=== PATIENT | male | born 1995 | race Caucasian/White ===

== ENCOUNTER 2022-08-24 19:57 | Emergency (ER) | payer OTHER, SELFPAY ==
--- NOTE | ~2022-08-24 | CT_ITS ---
EXAMINATION: CT RIGHT ELBOW. CLINICAL INFORMATION: Hemarthrosis. Fall on outstretched hand. Elbow pain. Unable to move elbow. COMPARISON: Plain film exam right elbow today. TECHNIQUE: Axial images obtained through the right elbow. Coronal and sagittal reformatted images are performed at CT scanner. FINDINGS: There is fluid in the elbow joint consistent with hemarthrosis displacing the fat pads of the distal humerus. There is no fracture. No dislocation. Joint space is normal. CT/CT elbow RT wo IV con IMPRESSION: 1. No fracture. 2. Joint hemarthrosis. Consider follow-up MRI exam if pain persists.
--- NOTE | ~2022-08-24 | XR_ITS ---
EXAMINATION: XR ELBOW, RIGHT CLINICAL INFORMATION: Pain status post elbow injury COMPARISON: None TECHNIQUE: Two views of the right elbow. FINDINGS: A large hemarthrosis is present. A definite fracture, however, is not seen as 2 views. XR/XR elbow RT 2V IMPRESSION: Large hemarthrosis is present. A definite fracture is not seen. An occult fracture cannot be excluded on these 2 views.
--- NOTE | 2022-08-24 20:02 | ED_ITS ---
HPI - Extremity Injury (Upper) General Chief Complaint: Extremity Injury, Upper <LIOR Walsh - Last Filed: 08/24/22 20:03> Stated Complaint: ?Shoulder injury <LIOR Walsh - Last Filed: 08/24/22 20:03> Time Seen by Provider: 08/24/22 20:55 <LIOR Walsh - Last Filed: 08/24/22 20:03> Source: patient <Kristy Bill NP - Last Filed: 08/24/22 22:56> Mode of arrival: ambulatory <Kristy Bill NP - Last Filed: 08/24/22 22:56> Limitations: no limitations <Kristy Bill NP - Last Filed: 08/24/22 22:56> History of Present Illness HPI narrative: 27-year-old male presents with right elbow pain after snowboarding injury. He is unable to bend his arm, and has swelling in his fingers. <Kristy Bill NP - Last Filed: 08/24/22 22:56> MD complaint: injury to: right and elbow <Kristy Bill NP - Last Filed: 08/24/22 22:56> Onset (ago): hour(s) (Within an hour of arrival) <Kristy Bill NP - Last Filed: 08/24/22 22:56> Other injuries: none <Kristy Bill NP - Last Filed: 08/24/22 22:56> Handedness: right <Kristy Bill NP - Last Filed: 08/24/22 22:56> Place: other (Snowboarding) <Kristy Bill NP - Last Filed: 08/24/22 22:56> Severity: moderate <Kristy Bill NP - Last Filed: 08/24/22 22:56> Severity scale (1-10): 8 <Kristy Bill NP - Last Filed: 08/24/22 22:56> Relieving factors: immobilization <Kristy Bill NP - Last Filed: 08/24/22 22:56> Exacerbating factors: movement of extremity and other (Palpation) <Kristy Bill NP - Last Filed: 08/24/22 22:56> Context: fall and sports-related injury <Kristy Bill NP - Last Filed: 08/24/22 22:56> Associated symptoms: denies other symptoms <Kristy Bill NP - Last Filed: 08/24/22 22:56> Treatments prior to arrival: cold therapy <Kristy Bill NP - Last Filed: 08/24/22 22:56> Related Data Home Medications: Previous Rx's Medication Instructions Recorded oxycodone 5 mg tablet 5 mg PO Q4H PRN pain 3 days #18 08/24/22 tabs <LIOR Walsh - Last Filed: 08/24/22 20:03> Allergies/Adverse Reactions: Allergies Allergy/AdvReac Type Severity Reaction Status Date / Time No Known Allergies Allergy Unverified 05/01/20 16:49 [No Known Allergies*] <LIOR Walsh - Last Filed: 08/24/22 20:03> Review of Systems Review of Systems: Constitutional: No Fever, No Chills Cardiovascular: No Chest Pain, No SOB Respiratory: No Cough, No Dyspnea Gastrointestinal: No Nausea, No Vomiting, No Diarrhea, No abdominal Pain Genitourinary: No Dysuria, No Hematuria Musculoskeletal: positive right elbow pain, No Myalgias, positive right elbow Joint Swelling Skin: No Skin lacerations, No rash Neuro: No Weakness, No Numbness, No Paresthesias, No Dizziness, No Headache <Kristy iBll NP - Last Filed: 08/24/22 22:56> Yes all other systems are reviewed and are negative <Kristy Bill NP - Last Filed: 08/24/22 22:56> [facility] Past Medical History Attestation statement: The following information was validated with the patient. <Kristy Bill NP - Last Filed: 08/24/22 22:56> Source: old records reviewed <Kristy Bill NP - Last Filed: 08/24/22 22:56> Social History Social History: Social History Advance Directives: No Advance Directives Information Provided: No <LIOR Walsh Last Filed: 08/24/22 20:03> Physical Exam Vital Signs: Vital Signs: Last Vital Signs Temp 99.0 F 08/24/22 20:03 Pulse 86 08/24/22 20:03 Resp 18 08/24/22 20:03 BP 155/72 H 08/24/22 20:03 Pulse Ox 96 08/24/22 20:03 O2 Del Method 08/24/22 20:03 BMI result Body Mass Index 25.7 <LIOR Walsh - Last Filed: 08/24/22 20:03> Vital Signs: Last Vital Signs Temp 99.0 F 08/24/22 20:03 Pulse 86 08/24/22 20:03 Resp 18 08/24/22 20:03 BP 155/72 H 08/24/22 20:03 Pulse Ox 96 08/24/22 20:03 O2 Del Method 08/24/22 20:03 BMI result Body Mass Index 25.7 <Kristy Bill NP - Last Filed: 08/24/22 22:56> Appearance: Alert. Oriented X3. Moderate distress. Eyes: Pupils equal, round and reactive to light. ENT: Pharynx normal. Neck: Normal inspection. Neck supple. No vertebral tenderness or step-offs. CVS: Normal heart rate and rhythm. Pulses normal. Respiratory: No respiratory distress. Breath sounds normal. Abdomen: Soft and nontender. Skin: Skin warm and dry. Normal skin color. Normal skin turgor. Extremities: No shoulder tenderness, crepitus, no pain in the biceps, forearm. Decreased range of motion to the digits due to swelling, able to fully abduct and adduct thumb. Decreased pronation supination secondary to elbow pain and swelling. Right elbow is visibly a swollen, range of motion to elbow not performed secondary to traumatic injury. Neuro: No motor deficit. No sensory deficit. Cranial nerves 2-12 intact. <Kristy Bill NP - Last Filed: 08/24/22 22:56> Course Course Course Narrative: RME - 27 y/o male presents the ER for evaluation of right elbow pain and limited range of motion after he had a fall while snowboarding earlier. He states he fell with his right arm extended. He did not hear any pops or snaps but has been unable to extend or flex his right elbow since. Neurovascularly intact distally. X-ray right elbow ordered. <LIOR Walsh - Last Filed: 08/24/22 20:03> RME - 27 y/o male presents the ER for evaluation of right elbow pain and limited range of motion after he had a fall while snowboarding earlier. He states he fell with his right arm extended. He did not hear any pops or snaps but has been unable to extend or flex his right elbow since. Neurovascularly intact distally. X-ray right elbow ordered. 27-year-old male presents with right elbow pain, swelling and limited range of motion with swelling to his hand. He has full sensation, brisk capillary refill in equal pulses bilaterally. Patient is neurovascularly intact. X-ray indicates a large hemarthrosis. Will medicate for pain with IV morphine, p.o. oxycodone. 21:21 call out to orthopedics PA, plan of care is for patient to follow-up in the office at 10:[address] patient in a sling, provide pain management. CT scan recommended, ordered at this time. 22:40 no occult fracture noted. Joint hemarthrosis noted. Plan of care is to discharge home with sling, pain management. Patient verbalized understanding of compartment syndrome. Patient does understand that he must follow-up with orthopedics. Patient verbalized understanding of and agrees with care discharge home. Verbalized understanding of signs and symptoms indicating need for emergent intervention. <Kristy Bill NP - Last Filed: 08/24/22 22:56> Consultations Consultation #1: Isidro <Kristy Bill NP - Last Filed: 08/24/22 22:56> Medications Administered Discontinued Medications Generic Name Dose Route Start Last Admin Trade Name Jillian PRN Reason Stop Dose Admin Morphine Sulfate 4 mg 08/24/22 21:28 08/24/22 21:43 Morphine Sulfate 4 Mg/Ml Cartridge IVPUSH 08/24/22 21:29 4 mg ONCE ONE Administration Protocol Ondansetron HCl 4 mg 08/24/22 21:28 08/24/22 21:42 Ondansetron Hcl 4 Mg/2 Ml Vial IVPUSH 08/24/22 21:29 4 mg ONCE ONE Administration Oxycodone HCl 5 mg 08/24/22 21:28 08/24/22 21:43 Oxycodone Hcl Immed Release 5 Mg Tablet PO 08/24/22 21:29 5 mg ONCE ONE Administration <LIOR Walsh - Last Filed: 08/24/22 20:03> Medications Administered Discontinued Medications Generic Name Dose Route Start Last Admin Trade Name Jillian PRN Reason Stop Dose Admin Morphine Sulfate 4 mg 08/24/22 21:28 08/24/22 21:43 Morphine Sulfate 4 Mg/Ml Cartridge IVPUSH 08/24/22 21:29 4 mg ONCE ONE Administration Protocol Ondansetron HCl 4 mg 08/24/22 21:28 08/24/22 21:42 Ondansetron Hcl 4 Mg/2 Ml Vial IVPUSH 08/24/22 21:29 4 mg ONCE ONE Administration Oxycodone HCl 5 mg 08/24/22 21:28 08/24/22 21:43 Oxycodone Hcl Immed Release 5 Mg Tablet PO 08/24/22 21:29 5 mg ONCE ONE Administration <Kristy Bill NP - Last Filed: 08/24/22 22:56> Medical Decision Making Differential Diagnosis Differential Diagnoses: The differential diagnosis associated with the presentation includes <Kristy Bill NP - Last Filed: 08/24/22 22:56> Fracture, dislocation, effusion, hemarthrosis, tendon rupture <Kristy Bill NP - Last Filed: 08/24/22 22:56> Consult Healthcare Provider Management of the patient was discussed with: Hospital Pharmacy Director <Kristy Bill NP - Last Filed: 08/24/22 22:56> Orthopedics <Kristy Bill NP - Last Filed: 08/24/22 22:56> Independent Interpretation I performed an independent interpretation of an: Plain X-Ray and CT Scan <Kristy Bill NP - Last Filed: 08/24/22 22:56> Radiology Impression Discussion of test interpretation with radiology: I have reviewed the radiologist's reading. <Kristy Bill NP - Last Filed: 08/24/22 22:56> Radiologist Impression: EXAMINATION: XR ELBOW, RIGHT CLINICAL INFORMATION: Pain status post elbow injury? COMPARISON: None? TECHNIQUE: Two views of the right elbow. FINDINGS: A large hemarthrosis is present. A definite fracture, however, is not seen as 2 views.? XR/XR elbow RT 2V IMPRESSION: Large hemarthrosis is present. A definite fracture is not seen. An occult fracture cannot be excluded on these 2 views. EXAMINATION: CT RIGHT ELBOW. CLINICAL INFORMATION: Hemarthrosis. Fall on outstretched hand. Elbow pain. Unable to move elbow.? COMPARISON: Plain film exam right elbow today.? TECHNIQUE: Axial images obtained through the right elbow. Coronal and sagittal reformatted images are performed at CT scanner.? FINDINGS: There is fluid in the elbow joint consistent with hemarthrosis displacing the fat pads of the distal humerus. There is no fracture. No dislocation. Joint space is normal.? CT/CT elbow RT wo IV con IMPRESSION: 1.? No fracture. 2.? Joint hemarthrosis. ? Consider follow-up MRI exam if pain persists. ? <Kristy Bill NP - Last Filed: 08/24/22 22:56> External Record Review External record reviewed: Outpatient record <Kristy Bill NP - Last Filed: 08/24/22 22:56> Prescription Management I considered prescription management with: Pain Medication <Kristy Bill NP - Last Filed: 08/24/22 22:56> Discharge Plan Discharge Clinical Impression: Hemarthrosis involving elbow joint, Dislocation of radial head <LIOR Walsh - Last Filed: 08/24/22 20:03> Patient Disposition: Home, Self-Care <LIOR Walsh - Last Filed: 08/24/22 20:03> Instructions: Elbow Dislocation (ED), Hemarthrosis (ED), R.I.C.E. Treatment (ED), Compartment Syndrome (DC) <LIOR Walsh - Last Filed: 08/24/22 20:03> Additional Instructions: You were evaluated for right elbow pain after a sports-related injury. You have a large hemarthrosis, a pocket of blood inside the elbow joint. This is suspected to have occurred because of an elbow dislocation during the fall. Please keep splint in place. Continue to move your fingers to help improve circulations. Rest, ice and elevate the extremity. You must follow-up with orthopedics. Please follow-up with Junie TINAJERO at 10:45 on . They are located on [address] I provided instructions for compartment syndrome. Please read these instructions. If you have any signs or symptoms indicating compartment syndrome you must return to the emergency department immediately. You do not have compartment syndrome at this time, however you have a high risk for this syndrome based on the extent of your injuries. Please take oxycodone for pain management. This medication is a narcotic and has high risk for addiction and abuse. Do not drive or operate machinery while taking this medication. This medication can delay reaction time, increased risk for falls, cause drowsiness, and constipation. Drink plenty of fluids. Consider using MiraLax daily to help soften stools. This is a dangerous medication. Use this medication with extreme caution. Alternate Tylenol 650 mg every 6 hours and Motrin 600 mg every 6 hours as needed for pain and fever management. Consider taking these medications 3 hours apart so you have pain and fever management every 3 hours. Write down what time you take these medications to prevent accidental overdose. Thank you for choosing this emergency department for evaluation. Please follow- up with primary care physician as needed. Return to the emergency department for any new, concerning, or worsening symptoms. <LIOR Walsh - Last Filed: 08/24/22 20:03> Prescriptions: New oxycodone 5 mg tablet 5 mg PO Q4H PRN (Reason: pain) 3 Days Qty: 18 0RF Rx Instructions: Partial Fill upon patient request. Right elbow dislocation with hemarthrosis <LIOR Walsh - Last Filed: 08/24/22 20:03> Referrals: Junie Felix PA-C [Physician Gold Cutter] - 2 days (Right elbow hemarthrosis) <LIOR Walsh - Last Filed: 08/24/22 20:03>
[2022-08-24 20:03] VITALS: BP 155/72; PULSE 86; RESP 18; TEMP 37.2; O2SAT 96; BMI 25.7
[2022-08-24] MEDS: ondansetron HCL 4 MG/2 ML VIAL IVPUSH (21:42)
[2022-08-24] MEDS: Morphine Sulfate 4 MG/ML CARTRIDGE IVPUSH (21:43)
[2022-08-24] MEDS: oxyCODONE HCl Immed Release 5 MG TABLET PO (21:43)
[2022-08-24 23:05] VITALS: BP 132/79; PULSE 65; RESP 16; O2SAT 99
== END 2022-08-24 23:09 | disposition home or self-care (01) ==
PROVIDERS: Emergency Provider Internal Medicine
DX: M25.021 Hemarthrosis, right elbow (principal); S53.004A Unspecified dislocation of right radial head, initial encounter; W17.81XA Fall down embankment (hill), initial encounter; Y93.23 Activity, snow (alpine) (downhill) skiing, snowboarding, sledding, tobogganing and snow tubing; Y92.828 Other wilderness area as the place of occurrence of the external cause; Y99.9 Unspecified external cause status
CPT/HCPCS: 73070; 73200; 96374; 96375; 99283; 99284; J2270; J2405

== ENCOUNTER → 2022-08-26 10:47 | Outpatient (BNVA) | payer OTHER, SELFPAY | PROVIDERS: Visit Provider Physician Assistant | DX: Z13.89 Encounter for screening for other disorder (principal) ==

== ENCOUNTER 2022-09-24 11:16 | Outpatient (REF) | payer OTHER, SELFPAY ==
--- NOTE | ~2022-09-24 | XR_ITS ---
EXAMINATION: XR ELBOW, RIGHT CLINICAL INFORMATION: Pain in elbow. COMPARISON: X-rays of the right elbow August [address] August 2022. TECHNIQUE: AP, lateral, and oblique views of the right elbow. FINDINGS: There is a persistent joint effusion albeit slightly less than that noted on the prior x-ray August 2022. There is a subtle area of lucency transversely-oriented incomplete along the medial aspect of the neck of the radius on the oblique projection and overlying the cortex on the AP projection. This is not seen previously. No periosteal reaction. The remaining bones, joints and soft tissues are unremarkable. XR/XR elbow RT min 3V IMPRESSION: 1. Persistent joint effusion slightly less than that noted on the prior x-ray August 2022. 2. Subtle area of lucency in the medial aspect of the neck of the radius. This is of uncertain etiology. This could reflect a nondisplaced incomplete fracture. 3. Given the persistent effusion and negative CT for fracture, consider followup imaging with MRI if symptoms persist.
== END 2022-09-24 11:17 | disposition home or self-care (01) ==
LOC: HO.HOSX 11:16
PROVIDERS: Visit Provider Physician Assistant
DX: M25.021 Hemarthrosis, right elbow (principal); M25.521 Pain in right elbow
CPT/HCPCS: 73080

== ENCOUNTER 2025-08-06 21:54 | Emergency (ER) | payer SELFPAY ==
[2025-08-06 22:00] VITALS: BP 127/77; PULSE 89; RESP 16; TEMP 37; O2SAT 100; BMI 25.8
--- NOTE | 2025-08-06 22:18 | ED.URI ---
HPI - URI/Sore Throat General Chief Complaint: Upper Respiratory Symptoms Stated Complaint: Sore throat Time Seen by Provider: 08/06/25 22:13 Source: patient Mode of arrival: ambulatory Limitations: no limitations History of Present Illness ED Provider: YANCY CARPIO Narrative: 30-year-old male with no significant past medical history here with sore throat x4 days. 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 He has had some chills. He has a dry cough that is new as of today. He states it hurts as well. Has swollen lymph nodes on the right side. He states he does not usually gets strep throat. He has not taken any [id number] MD elicited complaint: sore throat Onset (ago): day(s) (4) Consistency: constant Severity: moderate Description of mucous: clear Able to tolerate fluids by mouth: Yes Exacerbating factors: swallowing Relieving factors: nothing Context: sick contacts Associated symptoms: chills, voice changes, sore throat and cough Treatments prior to arrival: none Related Data Previous Rx's ?Medication ?Instructions ?Recorded oxycodone 5 mg tablet 5 mg PO Q4H PRN pain 3 days #18 08/24/22 tabs Allergies Allergy/AdvReac Type Severity Reaction Status Date / Time No Known Allergies (No Known Allergy Verified 08/06/25 22:01 Allergies*) Review of Systems Review of Systems: Yes all other systems are reviewed and are negative [facility] Past Medical History Attestation statement: The following information was validated with the patient. 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 Oriented X3. No acute distress. Eyes: Pupils equal, round and reactive to light. ENT: Pharynx moderate erythema he has exudates on bilateral tonsils, his uvula is midline, he is able to tolerate his secretions He has scant petechiae on the soft palate Neck: Normal inspection. Neck supple. Mild bilateral tender anterior cervical lymphadenopathy CVS: Normal heart rate and rhythm. Pulses normal. Respiratory: No respiratory distress. Breath sounds normal. Abdomen: Soft and nontender. Skin: Skin warm and dry. Normal skin color. Extremities: No lower extremity edema. Neuro: Oriented X 3. No motor deficit. No sensory deficit Medications Administered Discontinued Medications Generic Name Dose Route Start Last Admin Trade Name Freq PRN Reason Stop Dose Admin Dexamethasone Sodium Phosphate 8 mg 08/06/25 22:18 08/06/25 22:41 Dexamethasone Sod Phosphate 4 Mg/Ml Vial PO 08/06/25 22:19 8 mg ONCE ONE Administration Ibuprofen 600 mg 08/06/25 22:18 08/06/25 22:40 Ibuprofen Oral Susp 200 Mg/10 Ml Oral.Susp PO 08/06/25 22:19 600 mg ONCE ONE Administration Medical Decision Making Medical Decision Making MDM Narrative: 30-year-old male with no significant past medical history here with complaint of sore throat he does have mild anterior cervical lymphadenopathy. He has no signs of peritonsillar abscess or retropharyngeal abscess. He will need viral panel as well as strep swab. I am going to give him Motrin and dexamethasone for supportive care Differential Diagnosis Differential Diagnoses: The differential diagnosis associated with the presentation includes Pharyngitis, viral syndrome, strep throat Admission/Observation Consideration of admission/observation: Escalation of care including admission/observation considered No signs of deeper space infection can be treated as an outpatient Lab Data [facility] Lab Attestation statement: I reviewed the patient's lab results. Labs: Lab Results 08/06/25 Range/Units 22:16 COVID-19 (BARBARA) Positive A (Negative) COVID-19 Clin Com See Note Influenza Type A (RODERICK) Negative (Negative) Influenza Type B (RODERICK) Negative (Negative) Influenza A & B Note See Note S. pyogenes GrpA RODERICK Negative (Negative) External Record Review External record reviewed: Outpatient record Prescription Management I considered prescription management with: Antibiotic Discharge Plan Discharge Clinical Impression: COVID-19 Pharyngitis Qualifiers: Pharyngitis/tonsillitis etiology: unspecified etiology Qualified Code(s): J02.9 - Acute pharyngitis, unspecified Patient Disposition: Home, Self-Care Instructions: COVID-19 (Coronavirus Disease 2019) (ED), Pharyngitis (ED) Additional Instructions: At this time suspect your sore throat is due to COVID-19 Please monitor your symptoms alternate Tylenol and Motrin as needed for pain it will alleviate your symptoms Please gargle with salt water as well I am going to avoid antibiotics as the strep test negative and you likely have symptoms base off COVID you are infective for 3 more days you should be wearing a mask Please return for any worsening symptoms such as swelling on 1 side of the throat, change in voice inability to swallow or any other complaints Prescriptions: No Action oxycodone 5 mg tablet 5 mg PO Q4H PRN (Reason: pain) 3 Days Qty: 18 0RF Rx Instructions: Partial Fill upon patient request. Right elbow dislocation with hemarthrosis Stand Alone Forms: Work/School Release Print Language: Honduran
--- OUTSIDE RECORDS SUMMARY | 2025-08-06 22:28 | XMS_ITS | Encounter Summary ---
Author Organization [facility] Address [address] [place] [phone] Phone Care Team Providers Care Pickling Drum Operator Name Role Phone Aubrey Garcia MD Primary Care Provider Ellen grey Encounter Details Date Type Department Care Team (Late st Contact Info) Description 09/03/2016 Documentation [facility] [place] Family Medicine [address] [place], [place] [phone] Family Medicine, Physician [address] [place], [place] [phone] Social History Tobacco Use Types Packs/Day Years Used Date Smoking Tobacco: Never Assessed Sex and Gender Information Value Date Recorded Sex Assigned at Not on file Legal Sex Male 5:23 PM EDT Gender Identity Not on file Sexual Orientation Not on file documented as of this encounter Plan of Treatment Not on file documented as of this encounter Visit Diagnoses Not on filedocumented in this encounter Care Teams Pickling Drum Operator Relationship Specialty Start Date End Date Aubrey Garcia MD PCP - General 03/25/17 11/25/22 documented as of this encounter
--- OUTSIDE RECORDS SUMMARY | 2025-08-06 22:28 | XMS_ITS | Encounter Summary ---
Author Organization [facility] Address [address] [place] [phone] Phone Care Team Providers Care Printing Manager Name Role Phone Aubrey Garcia MD Primary Care Provider Ellen grey Encounter Details Date Type Department Care Team (Late st Contact Info) Description 03/31/2017 Conversion Encounter [facility] - [address] [address] Social History Tobacco Use Types Packs/Day Years Used Date Smoking Tobacco: Never Comments:Never smoker Sex and Gender Information Value Date Recorded Sex Assigned at Not on file Legal Sex Male 5:23 PM EDT Gender Identity Not on file Sexual Orientation Not on file documented as of this encounter Plan of Treatment Not on file documented as of this encounter Visit Diagnoses Not on filedocumented in this encounter Care Teams Printing Manager Relationship Specialty Start Date End Date Aubrey Garcia MD PCP - General 03/25/17 11/25/22 documented as of this encounter
--- OUTSIDE RECORDS SUMMARY | 2025-08-06 22:28 | XMS_ITS | Encounter Summary ---
Author Organization [facility] Address [address] [place] [phone] Phone Care Team Providers Care Commercial Roofer Name Role Phone Aubrey Garcia MD Primary Care Provider Ellen grey Encounter Details Date Type Department Care Team (Late st Contact Info) Description 10/14/2014 Documentation [facility] [place] [address] [place], [place] [phone] Family Medicine, Physician [address] [place], [place] [phone] Social History Tobacco Use Types Packs/Day Years [...] on filedocumented in this encounter Care Teams Commercial Roofer Relationship Specialty Start Date End Date Aubrey Garcia MD PCP - General 03/25/17 11/25/22 documented as of this encounter
--- OUTSIDE RECORDS SUMMARY | 2025-08-06 22:28 | XMS_ITS | Encounter Summary ---
Author Organization [facility] Address [address] [place] [phone] Phone Care Team Providers Care Exchange Trouble Shooter Name Role Phone Aubrey Garcia MD Primary Care Provider Ellen grey Encounter Details Date Type Department Care Team (Late st Contact Info) Description 07/16/2015 Documentation [facility] [place] Family Medicine [address] [place], [place] [phone] Family Medicine, Physician [address] [place], [place] [address] Social History Tobacco Use Types Packs/Day Years [...] on filedocumented in this encounter Care Teams Exchange Trouble Shooter Relationship Specialty Start Date End Date Aubrey Garcia MD PCP - General 03/25/17 11/25/22 documented as of this encounter
--- OUTSIDE RECORDS SUMMARY | 2025-08-06 22:28 | XMS_ITS | Clinical Summary ---
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 Name Role Phone Unavailable Primary Care Provider Unavailabl e Allergies Active Allergy Reactions Criticality Noted Date Comments Environmental Runny nose 06/14/2017 Cat dander-sneeze Medications No known medications Active Problems Problem Noted Date Diagnosed Date Chronic seasonal allergic rhinitis due to pollen 03/27/2012 Assessment & Plan (11/15/2017 6:02 PM EDT): Doing ok with no prescription meds Resolved Problems Problem Noted Date Diagnosed Date Resolved Date Testicular pain 10/07/2017 11/15/2017 Overview (10/07/2017): with normal exam, normal urine save ketones (needs to drink more), will check ultrasound just to make sure. Assessment & Plan (10/07/2017 2:13 PM EST): See above. Exam seems normal though 6 months of discomfort, ?stress playing a role. counselled re mind body connection Immunizations Immunization Administration Dates Next Due DTP 10/10/1998, 8,1997,05/20 DTaP 5 03/23/2002 HPV, Quadrivalent 05/10/2014,11/19/2013,10/04/19 14 Hep A, ped/adol 10/11/2014,10/04/2013 Hep B, ped/adol 1997,1997,1997 Hib (PRP-T) 06/23/1998, 8,1997,05/20 IPV 03/23/2002 Influenza Split 09/01/2012,07/19/2011,07/13/2010 Influenza, injectable, quadrivalent 10/24/2015 Influenza, injectable, quadr ivalent, preservative free 11/15/2017,09/02/2016,05/10/2014,10/04 Influenza, injectable, trivalent 05/14/2009 MMR 03/23/2002,04/18/2001,03/21/1998 Meningococcal Conj (Menactra) MCV4P 10/11/2014,0 05/10/2008 OPV 1997,1997,1997 Tdap 05/10/2008 Varicella 05/10/2008,10/10/1998 Family History Medical History Relation Name Comments Cancer Father Relation Name Status Comments Brother 1 Brother: Lympho ma, Asthma Brother 2 Brother: Lympho ma, Asthma Father Alive Father: Lymphom a, Alive and well Maternal Grandfather Materna l grandfather: heart bypass Mother Alive Mother: Cancer, breast, Cancer, thyroid Other Family history of Hyperlipidemia Paternal Grandfather Paterna l grandfather: Dementia Paternal Grandmother Paterna l grandmother: Hypertension Social History Tobacco Use Types Packs/Day Years Used Date Smoking Tobacco: Never Smokeless Tobacco: Former Quit: 11/15/2016 Comments:Used to use chewing tobacco Alcohol Use Standard Drinks/Week Comments Yes 2 (1 standard drink = 0.6 oz pur e alcohol) Sex and Gender Information Value Date Recorded Sex Assigned at Not on file Legal Sex Male 5:23 PM EDT Gender Identity Not on file Sexual Orientation Not on file Last Filed Vital Signs Vital Sign Reading Time Taken Comments Blood Pressure 133/87 04/14/2018 4:18 PM EDT Pulse 85 04/14/2018 4:18 PM EDT Temperature 35.6 C (96.1 F) 04/14/2018 4:18 PM EDT Respiratory Rate - - Oxygen Saturation - - Inhaled Oxygen Concentration - - Weight 81.7 kg (180 lb 3.2 oz) 04/14/2018 4:18 P M EDT Height 181 cm (5' 11.25 ) 11/15/2017 2:08 PM EDT Body Mass Index 24.96 11/15/2017 2:08 PM EDT Plan of Treatment Health Maintenance Due Date Last Done Comments DTaP,Tdap,and Td Vaccines (7 - Td or Tdap) 05/10/2018 05/10/2008, 03/23/2002, 10/10/1998, Additional history exists Influenza Vaccines (#1) 2025 11/16/19 18, 09/02/2016, 10/24/2015, Additional history exists COVID-19 Vaccine ( season) 2025 Hepatitis B Vaccines Completed 1997, 1997, 1997 HIB Vaccines Completed 06/23/1998, 09/15, 1997, Additional history exists IPV Vaccines Completed 03/23/2002, 09/15, 1997, Additional history exists MMR Vaccines Completed 03/23/2002, 11/2000, 03/21/1998 Varicella Vaccines Completed 05/10/2008, 10/10/1998 HPV Vaccines Completed 05/10/2014, 02/2014, 10/04/2013 Hepatitis A Vaccines Completed 10/11/2014, 10/04/19 14 Meningococcal Vaccine Completed 10/11/2014, 008 Men B Vaccine Aged Out No longer elig ible based on patient's age to complete this topic Pneumococcal Vaccine Aged Out No long er eligible based on patient's age to complete this topic Insurance [address] [address] PUBLIC DIRECT
[2025-08-06] MEDS: Ibuprofen Oral Susp 200 MG/10 ML ORAL.SUSP 600 MG PO (22:40)
[2025-08-06 22:41] LABS: COVID-19 Test Positive (Negative); IDNOW Serial# 08D9AD1C; IDNOW Serial# 58CA691E; Influenza B2 Negative (Negative); Strep A Nucleic Acid Negative (Negative)
--- NOTE | 2025-08-06 22:46 | PC.NURSE ---
Pt a&ox4, no signs of distress. Pt reports 7/10 sore throat feels like I'm swallowing glass Pt denies allergies to meds Pt medicated per mar Plan of care ongoing.
[2025-08-06 23:09] VITALS: BP 127/77; PULSE 89; RESP 16; TEMP 37; O2SAT 100
== END 2025-08-06 23:10 | disposition home or self-care (01) ==
PROVIDERS: Emergency Provider Emergency Medicine
DX: U07.1 COVID-19 (principal); J02.9 Acute pharyngitis, unspecified
CPT/HCPCS: 87502; 87635; 87651; 99283; J1100